=== PATIENT | female | born 1960 | race African-American/Black ===

== ENCOUNTER 2018-08-15 17:14 | Emergency (ER) | payer MEDICAID ==
[~2018-08-15] VITALS: Ht 160 cm; Wt 68.0 kg
[~2018-08-15 17:14] MED LIST: AMLO10TA4 PO; HYDR-3927 PO
[2018-08-15] MEDS ORDERED: LORAZEPAM 1MG TABLET PO ONE (18:30)
[2018-08-15 19:27] VITALS: BP 124/87
== END 2018-08-15 19:38 | disposition home or self-care (01) ==
LOC: ER 17:14
DX: Z00.00 Encounter for general adult medical examination without abnormal findings (principal); G93.49 Other encephalopathy; F16.10 Hallucinogen abuse, uncomplicated
CPT/HCPCS: 82962; 99283